=== PATIENT | male | born 1935 | race Caucasian/White ===

== ENCOUNTER 2016-11-12 23:37 | Inpatient (IN) | payer MEDICARE ==
[2016-11-12] MEDS ORDERED: Pharmacy Review for Metformin - IV Contrast Given SCH (23:45)
[2016-11-12] MEDS ORDERED: SODIUM CHLORIDE 0.9% 3 ML FLUSH FLUSH PRN (23:58)
[2016-11-12] MEDS ORDERED: MORPHINE 4 MG/ML INJECTION IV ONE (23:58)
--- NOTE | 2016-11-13 00:20 | EDPRACDOC ---
- General Information Chief Complaint: Abdominal Pain Stated Complaint: ABD PAIN Time Seen by Provider: 11/12/16 23:49 Mode Of Arrival: Car Home Medications: Home Medications Aspirin [Aspirin EC] 81 mg PO DAILY 06/07/14 Losartan/Hydrochlorothiazide [Hyzaar 50-12.5 Tablet] 1 tab PO DAILY 06/07/14 Oxycodone HCl/Acetaminophen [Percocet 5-325 mg Tablet] 1 - 2 tab PO Q4H PRN #20 tab 07/16/16 Sulfamethoxazole/Trimethoprim [Bactrim Ds Tablet] 1 tab PO BID #20 tab 07/16/16 Terbinafine HCl [Lamisil] 250 mg PO DAILY 07/16/16 Fenofibrate [Tricor] 145 mg PO DAILY 07/21/16 Tamsulosin HCl [Flomax] 1 tab PO DAILY 07/21/16 Ciprofloxacin HCl [Cipro] 1 tab PO BID 07/22/16 Hydrocodone/Acetaminophen [Lortab 7.5-325 mg Tablet] 1 tab PO Q6 PRN 07/22/16 Allergies/Adverse Reactions: Allergies Allergy/AdvReac Type Severity Reaction Status Date / Time No Known Allergies Allergy Verified 11/12/16 23:46 - History of Present Illness Onset: YESTERDAY HPI: PT PRESENTS WITH 24 HOURS OF PERIUMBILICAL AND SUPRAPUBIC ABDOMINAL PAIN. HAD A BM TODAY WHICH WAS NORMAL. DENIES N/V OR PAIN WITH URINATION. Pain Location: Reports: Periumbilical, Suprapubic Pain Context: Reports: Spontaneous Pain Severity: Moderate Pain Quality: Reports: Aching Pain Radiation: Reports: No Radiation Associated Signs & Symptoms: Denies: Nausea, Vomiting, Diarrhea, Dysuria Oral Intake: Normal Urinary Output: Normal ED Past Medical History - History Reviewed Yes Nurses notes reviewed and agree except as marked - Patient Medical History Neurological History: Cardiac History: Reports: Hypertension, Hypercholesterolemia Musculoskeletal History: Reports: Arthritis Psychological History: Denies: Depression, Substance Use Disorder Systemic History: Reports: Cancer (basal cell skin). Denies: Hypothyroidism Surgical History: Reports: Hernia Surgery (INGUINAL) - Family Medical History Reports: Hypertension (BROTHER, FATHER), Cancer (BROTHER UNKNOWN CA), Cardiac Disorders (BROTHER, MOTHER). Denies: Diabetes, Stroke - Social Medical History Smoking Status: Former smoker Social History: Denies: Substance Use Disorder Lives With: Spouse Lives In: Home EDM Review of Systems - Review of Systems ROS Negative Except as Marked: Yes All systems reviewed and were negative except as marked Constitutional: negative: Fever Respiratory: negative: Shortness of Breath Cardiovascular: negative: Chest Pain Gastrointestinal: Pain. negative: Diarrhea, Nausea, Vomiting - Physical Exam Constitutional: Alert Oriented to: Time, Person, Place Last recorded Vital Signs: Last Vital Signs Temp 97.8 F 11/12/16 23:41 Pulse 78 11/13/16 01:10 Resp 18 11/13/16 01:10 BP 148/67 11/13/16 01:10 Pulse Ox 96 11/13/16 01:10 Oxygen Pulse Oxygen Saturation 96 O2 Device Room Air Oxygen Flow Rate Fraction of Inspired Oxygen ( FIO2) - HEENT Head: negative: Deformity, Laceration Eye Exam: negative: Conjunctival Injection, Pale Conjunctiva Oropharynx: negative: Membranes Dry Nose: negative: Congestion, Discharge Neck: negative: Limited ROM - Respiratory/Cardiovascular Respiratory: Normal - CTA. negative: Accessory Muscle Use, Diminished, Tachypnea Cardiovascular: negative: Bradycardia, Tachycardia, Irregular - GI Auscultation: Normal Palpation: Normal Tenderness: Moderate, Guarding, Suprapubic, Periumbilical. negative: Rebound, Rigidity - Integumentary Skin: Warm, Dry. negative: Rash - Neurologic Memory Impaired: Normal Motor Function: Normal Mood Description: Appropriate Thought: Coherent Perception: Normal - Results 11/13/16 00:26 11/13/16 00:26 WBC 4.5 xk/uL (3.8-10.8) 11/13/16 00:26 RBC 3.90 xM/uL (4.70-6.10) L 11/13/16 00:26 Hgb 12.2 g/dL (14.0-18.0) L 11/13/16 00:26 Hct 35.8 % (42-52) L 11/13/16 00:26 MCV 92 fL (80-94) 11/13/16 00:26 MCH 31.4 pg (27-32) 11/13/16 00:26 MCHC 34.2 g/dl (33-36) 11/13/16 00:26 RDW 17.0 % (11.5-14.5) H 11/13/16 00:26 Plt Count 170 xk/uL (130-400) 11/13/16 00:26 MPV 10.7 fL (7.4-10.4) H 11/13/16 00:26 Neut % (Auto) 73.4 % (45-76) 11/13/16 00: Lymph % (Auto) 11.2 % (17-44) L 11/13/16: Garrard % (Auto) 14.7 % (3-10) H 11/13/16 00: Eos % (Auto) 0.3 % (0-5) 11/13/16 00: Baso % (Auto) 0.4 % (0-2) 11/13/16 00:26 Absolute Neuts (auto) 3.29 xk/uL (1.7-8.2) 11/13/16 00: Absolute Lymphs (auto) 0.50 xk/uL (0.65-4.75) L 11/13/16 00:26 Sodium 140 mEq/L (137-146) 11/13/16 00: Potassium 4.0 mEq/L (3.5-5.1) 11/13/16 00:26 Chloride 106 mEq/L (98-107) 11/13/16 00: Carbon Dioxide 22 mMOL/L (22-33) 11/13/16 00:26 Anion Gap 16 mEq/L (8-16) 11/13/16 00:26 BUN 26 MG/DL (9-20) H 11/13/16 00:26 Creatinine 0.90 MG/DL (0.66-1.25) 11/13/16 00:26 Estimated GFR (MDRD) > 60 mL/min (>=60) 11/13/16 00:26 Glucose 128 MG/DL (70-99) H 11/13/16 00:26 Calculated Osmolality 276 MOs/Kg (270-290) 11/13/16 00:26 Calcium 9.4 MG/DL (8.4-10.2) 11/13/16 00:26 Total Bilirubin 0.9 MG/DL (0.2-1.3) 11/13/16 00:26 AST 22 IU/L (17-59) 11/13/16 00:26 ALT 40 IU/L (21-72) 11/13/16 00:26 Alkaline Phosphatase 40 IU/L (50-160) L 11/13/16 00:26 Total Protein 6.8 G/DL (6.3-8.2) 11/13/16 00:26 Albumin 4.1 G/DL (3.5-5.0) 11/13/16 00:26 Lab Results 11/13/16 11/13/16 00:26 00:26 WBC 4.5 RBC 3.90 L Hgb 12.2 L Hct 35.8 L MCV 92 MCH 31.4 MCHC 34.2 RDW 17.0 H Plt Count 170 MPV 10.7 H Neut % (Auto) 73.4 Lymph % (Auto) 11.2 L Garrard % (Auto) 14.7 H Eos % (Auto) 0.3 Baso % (Auto) 0.4 Absolute Neuts (auto) 3.29 Absolute Lymphs (auto) 0.50 L Sodium 140 Potassium 4.0 Chloride 106 Carbon Dioxide 22 Anion Gap 16 BUN 26 H Creatinine 0.90 Estimated GFR (MDRD) > 60 Glucose 128 H Calculated Osmolality 276 Calcium 9.4 Total Bilirubin 0.9 AST 22 ALT 40 Alkaline Phosphatase 40 L Total Protein 6.8 Albumin 4.1 - Departure Yes I personally saw and evaluated the patient. Disposition: Admit IP To This Hospital Condition: Stable Final Diagnosis: Small bowel obstruction Referrals: Idania Hanson MD [Primary Care Provider] - One Week Decision to Admit Time: 02:00 (DR. NORMAN TO ADMIT) Decision to admit date: 11/13/16 Decision to admit: from ED
[2016-11-13 00:44] LABS: BLOOD UREA NITROGEN 26 MG/DL (9-20); CALCIUM 9.4 MG/DL (8.4-10.2); CALCULATED OSMOLALITY 276 MOs/Kg (270-290); CHLORIDE 106 mEq/L (98-107); GLUCOSE 128 MG/DL (70-99); SODIUM LEVEL 140 mEq/L (137-146); TOTAL PROTEIN 6.8 G/DL (6.3-8.2)
[2016-11-13 01:18] LABS: AUTOMATED BASOPHIL 0.4 % (0-2); AUTOMATED EOSINOPHIL 0.3 % (0-5); AUTOMATED LYMPH 11.2 % (17-44); AUTOMATED MONOCYTE 14.7 % (3-10); AUTOMATED NEUTROPHIL 73.4 % (45-76); MPV 10.7 fL (7.4-10.4)
--- NOTE | 2016-11-13 01:42 | DIRPT ---
CLINICAL DATA: 81-year-old male with abdominal pain. EXAM: CT ABDOMEN AND PELVIS WITH CONTRAST TECHNIQUE: Multidetector CT imaging of the abdomen and pelvis was performed using the standard protocol following bolus administration of intravenous contrast. CONTRAST: 100 cc Isovue 370 COMPARISON: CT dated 07/16/2016 FINDINGS: The visualized lung bases are clear. No intra-abdominal free air or free fluid. Small gallstone. No pericholecystic fluid. The liver, pancreas appear unremarkable. The splenomegaly measuring up to 23 cm similar to prior study. The adrenal glands, kidneys, visualized ureters appear unremarkable. There is thickened and trabecular appearance of the bladder wall with multiple diverticula measuring up to 6.7 cm along the right posterior wall. Findings most compatible with chronic bladder outlet obstruction. The prostate and seminal vesicles are grossly unremarkable. Multiple mildly dilated fluid-filled loops of small bowel noted in the upper and mid abdomen. There is thickening and inflammatory changes of this bowel loops. There is focal abutment of the small bowel to the umbilical hernia repair mesh compatible with adhesions. There is apparent associated focal bowel narrowing and a degree of obstruction. There is mild dilatation of more distal bowel loops. The terminal ileum demonstrated normal caliber. A second transition zone may be present in the right hemipelvis (series 3, image 71 and coronal image 58) where there is apparent short segment narrowing of the small bowel. Underlying stricture or adhesion is not excluded. There is colonic diverticulosis without active inflammatory changes. Normal appendix. There is aortoiliac atherosclerotic disease. The abdominal aorta and IVC appear patent. No portal venous gas identified. There is no adenopathy. Top-normal periportal and portacaval lymph nodes. Degenerative changes of the spine. No acute fracture. IMPRESSION: Small bowel obstruction with transition zone at the level of the umbilical hernia repair due to adhesions. A second transition zone may be present within the more distal small bowel in the right hemipelvis possibly related to underlying strictures/adhesion. Clinical correlation and follow-up recommended. Colonic diverticulosis. Thickened and trabeculated urinary bladder sequela of chronic bladder outlet obstruction. Electronically Signed By: Danny Celestin M.D. On: 11/13/2016 01:39
[2016-11-13] MEDS ORDERED: ONDANSETRON HCL 4 MG/2 ML VIAL IV PRN (02:12)
[2016-11-13] MEDS ORDERED: ACETAMINOPHEN 650 MG SUPP PR PRN (02:12)
[2016-11-13] MEDS ORDERED: PROMETHAZINE 25 MG/ML VIAL IV PRN (02:13)
[2016-11-13] MEDS ORDERED: MORPHINE 2 MG/ML INJECTION IV PRN ×3 (02:14→02:15)
[2016-11-13] MEDS ORDERED: OXYCODONE HCL 5 MG TABLET PO PRN ×2 (02:16)
[2016-11-13] MEDS: NS 1,000 ML IV SCH ×3 (03:09→16:48)
[2016-11-13] MEDS: CEFOXITIN 1 GM in D5W 100 ML IV SCH ×4 (03:10→19:59)
[2016-11-13] MEDS ORDERED: Vaccine Screening Complete SCH (04:00)
[2016-11-13] MEDS ORDERED: Chloraseptic 6 OZ BOT PO PRN (04:42)
[2016-11-13] MEDS: SODIUM CHLORIDE 0.9% 3 ML FLUSH FLUSH SCH ×2 (05:58→17:27)
[2016-11-13 06:50] LABS: RBC/URINE 0-2 (0-2); WBC/URINE 0-2 (0-2)
[2016-11-13 06:51] LABS: LEUKOCYTES/URINE NEG (NEGATIVE); NITRITE/URINE NEG (NEGATIVE); URINE OCCULT BLOOD NEG (NEG/TRACE)
[2016-11-13] MEDS: MORPHINE 2 MG/ML INJECTION IV PRN ×3 (07:29→19:56)
--- NOTE | 2016-11-13 14:50 | HISTPHYS ---
- Chief Complaint ABdominal Pain - History of Present Illness 81 YO WM with complaint of abdominal pain. This started fairly suddenly and increased in intensity. Denies any alleviating factors. The pain was 8/10 and sharp No previous episodes like this. Had nonbloody BM yesterday. No nausea or vomiting. No fevers. Had workup in ER and was found to have dilated small bowel which may be fundraising sale representative of SBO. - Medical History Cardiac History: Reports: Hypertension Respiratory History: Reports: No Significant History GI/ History: Reports: BPH Musculoskeletal History: Reports: Arthritis Systemic History: Reports: Cancer (skin) Neurological History: Psychological History: Denies: Depression - Surgical History Reports: Hernia Surgery (INGUINAL), Other (TURP) - Medictions/Allergies Allergies No Known Allergies Allergy (Verified 11/12/16 23:46) Home Medications Aspirin [Aspirin EC] 81 mg PO DAILY 06/07/14 Losartan/Hydrochlorothiazide [Hyzaar 50-12.5 Tablet] 1 tab PO DAILY 06/07/14 Fenofibrate [Tricor] 145 mg PO DAILY 07/21/16 Bethanechol [Urecholine] 25 mg PO TID 11/13/16 - Family History Reports: Hypertension (BROTHER, FATHER), Cancer (BROTHER UNKNOWN CA), Cardiac Disorders (BROTHER, MOTHER) - Social History Smoking Status: Former smoker Social History: Denies: Amphetamine Use, Alcohol Use, Barbiturate Use, Benzodiazipine Use, Cocaine Use, Heroin Use, Marijuana Use, Methadone Use, MDMA (Ecstasy) Use, Substance Use Disorder - Review of Systems Constitutional: negative: Chills, Fever, Fatigue, Loss of Appetite, Weakness, Weight gain, Weight loss Eyes: negative: Blurred Vision, Double Vision, Photophobia Ears: negative: Hearing Loss, Tinnitus Nose: negative: Deformity, Ecchymosis Mouth: negative: Pain, Drooling Throat/Neck: negative: Swelling, Masses, Hoarseness Respiratory: negative: Cough, Shortness of Breath Cardiovascular: negative: Chest Pain, Orthopnea, Palpitations Gastrointestinal: Abdominal Pain. negative: Nausea, Vomiting, Melena, Hematochezia Genitourinary: Benign prostatic hyperplasia (BPH). negative: Dysuria, Hematuria Neurological: negative: Headache, Seizure Integumentary: negative: Bruising, Itching, Rash, Wound Allergic/Immunologic: negative: Hives, Itching Hematologic: negative: Easy Bruising, Easy Bleeding Endocrine: negative: Weight Gain, Weight Loss, Excessive Thirst, Excessive Hunger Psychiatric: negative: Anxiety, Depression - Physical Exam Vital Signs: Initial Vitals Temperature 97.8 F 11/12/16 23:41 Pulse Rate 83 11/12/16 23:41 Respiratory Rate 20 11/12/16 23:41 Blood Pressure 156/76 11/12/16 23:41 Pulse Oxygen Saturation 97 11/12/16 23:41 Constitutional: No apparent distress, Alert. negative: Cachectic, Distress Oriented to: Time, Person, Place - HEENT Head: Normal. negative: Laceration, Swelling Eye: negative: Pale Conjunctiva, Scleral Icterus Nose: negative: Discharge, Deformity Respiratory: Normal - CTA. negative: Rales, Rhonchi, Wheezes Cardiovascular: Normal. negative: Irregular, Diastolic murmur, Systolic murmur - GI Auscultation: Normal Palpation: Normal. negative: Enlarged liver, Fluid Wave Tenderness: Mild. negative: Guarding, Rebound Elliott's Sign: Negative - Musculoskeletal Back: Normal. negative: Ecchymosis, CVA Tenderness Extremities: negative: Clubbing, Cyanosis, Edema - Integumentary Skin: Warm, Dry Lymphatics: negative: Adenopathy - Assessment/Plan (1) Abdominal pain R10.9 - UNSPECIFIED ABDOMINAL PAIN Acute Present on Admission: Yes A (2) Cholelithiasis K80.20 - CALCULUS OF GALLBLADDER W/O CHOLECYSTITIS W/O OBSTRUCTION Chronic Present on Admission: Yes C C C C C B (3) BPH (benign prostatic hypertrophy) N40.0 - BENIGN PROSTATIC HYPERPLASIA WITHOUT LOWER URINRY TRACT SYMP Chronic Present on Admission: Yes P L Plan: Will admit and start IVF and bowel rest. NGT to suction. Recheck XR in AM Would like to see if this resolves with conservative therapy. If fails to iprove quickly will check SBFT and depending on results may need to have surgical intervention.
[2016-11-13] MEDS: BETHANECHOL 25 MG TAB PO SCH ×2 (16:47→19:59)
[2016-11-13] MEDS: LOSARTAN KCL/HCTZ 50-12.5 TAB PO SCH (16:47)
[2016-11-14] MEDS: ACETAMINOPHEN 325 MG/TAB TABLET PO PRN ×3 (01:42→18:10)
[2016-11-14] MEDS: CEFOXITIN 1 GM in D5W 100 ML IV SCH ×4 (03:20→20:15)
[2016-11-14] MEDS: NS 1,000 ML IV SCH ×4 (03:21→20:14)
[2016-11-14 05:14] VITALS: BMI 26.7
[2016-11-14] MEDS: SODIUM CHLORIDE 0.9% 3 ML FLUSH FLUSH SCH ×2 (05:29→18:05)
[2016-11-14] MEDS: BETHANECHOL 25 MG TAB PO SCH ×3 (05:30→20:15)
[2016-11-14] MEDS: LOSARTAN KCL/HCTZ 50-12.5 TAB PO SCH (08:44)
--- NOTE | 2016-11-14 12:18 | DIRPT ---
CLINICAL DATA: Small bowel obstruction EXAM: ABDOMEN - 2 VIEW COMPARISON: 11/13/2016 FINDINGS: Mild gaseous distended small bowel loops in left mid abdomen suspicious for ileus or partial bowel obstruction. There is contrast material from yesterday CT scan within bladder. Pelvic phleboliths are noted. 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 No free abdominal air. IMPRESSION: Mild gaseous distended small bowel loops in left abdomen suspicious for ileus or partial obstruction. Contrast material noted within urinary bladder and a urinary bladder diverticulum. Electronically Signed By: Rodger Pearce M.D. On: 11/14/2016 12:15
--- NOTE | 2016-11-14 15:33 | PCM.SURGRO ---
- Subjective Patient: Reports: Feels better, Flatus, No Bowel Movement - Objective / Physical Exam Vital Signs: Temperature: 97.8 F (11/14/16 13:49) HR: 70 (11/14/16 13:49)RR: 18 (11/14/16 13: 49) BP: 143/53 (11/14/16 13:49)Pulse Ox: 97 (11/14/16 13:49) General: Alert, Oriented x3, Cooperative HEENT: Normal, EOMI, Anicteric Sclera Respiratory: Normal - CTA. negative: Rales, Rhonchi, Wheezes Cardiovascular: Regular rate and rhythm, No Gallops,Rubs/Murmurs Gastrointestinal: Soft. negative: Distended, Tender, Guarding Back: negative: Ecchymosis, CVA Tenderness Extremities: negative: Tenderness, Edema, Clubbing, Cyanosis Psych/Mental Status: Normal Affect, Cooperative. negative: Agitated, Anxious Neurological: Normal speech. negative: Drowsy, Somnolent Skin: Warm,Dry and Intact, No rashes, No breakdown - Assessment and Plan (1) Abdominal pain Acute R10.9 - UNSPECIFIED ABDOMINAL PAIN Present on Admission: Yes A (2) Cholelithiasis Chronic K80.20 - CALCULUS OF GALLBLADDER W/O CHOLECYSTITIS W/O OBSTRUCTION Present on Admission: Yes C C C C C B (3) Small bowel obstruction Acute K56.69 - OTHER INTESTINAL OBSTRUCTION Present on Admission: Yes Plan: Xr today seems to be improved. Will recheck XR in AM. Will start clamping NGT. May need SBFT.
[2016-11-15] MEDS: CEFOXITIN 1 GM in D5W 100 ML IV SCH ×4 (02:20→20:34)
[2016-11-15] MEDS: NS 1,000 ML IV SCH ×4 (02:29→22:50)
[2016-11-15] MEDS: ACETAMINOPHEN 325 MG/TAB TABLET PO PRN ×2 (03:44→11:42)
[2016-11-15] MEDS: SODIUM CHLORIDE 0.9% 3 ML FLUSH FLUSH SCH ×2 (04:34→08:55)
[2016-11-15] MEDS: BETHANECHOL 25 MG TAB PO SCH ×3 (06:25→20:34)
[2016-11-15] MEDS: LOSARTAN KCL/HCTZ 50-12.5 TAB PO SCH (08:37)
--- NOTE | 2016-11-15 13:40 | PCM.SURGRO ---
- Subjective Patient: Reports: No new complaints, Feels better, Flatus, Bowel Movement. Denies: Nausea, Vomiting - Objective / Physical Exam Vital Signs: Temperature: 98.0 F (11/15/16 06:00) HR: 85 (11/15/16 06:00)RR: 18 (11/15/16 06: 00) BP: 132/56 (11/15/16 06:00)Pulse Ox: 97 (11/14/16 13:49) General: Alert, Oriented x3, Cooperative HEENT: Normal, EOMI, Anicteric Sclera Respiratory: Normal - CTA. negative: Rales, Rhonchi Cardiovascular: Regular rate and rhythm, No Gallops,Rubs/Murmurs Gastrointestinal: Soft. negative: Distended, Tender, Guarding, Firm Extremities: negative: Swelling, Edema, Clubbing, Cyanosis Psych/Mental Status: Appropriate, Normal Affect, Cooperative Skin: Warm,Dry and Intact, No rashes, No breakdown - Assessment and Plan (1) Abdominal pain Resolved R10.9 - UNSPECIFIED ABDOMINAL PAIN Present on Admission: Yes A (2) Cholelithiasis Chronic K80.20 - CALCULUS OF GALLBLADDER W/O CHOLECYSTITIS W/O OBSTRUCTION Present on Admission: Yes C C C C C B (3) BPH (benign prostatic hypertrophy) Chronic N40.0 - BENIGN PROSTATIC HYPERPLASIA WITHOUT LOWER URINRY TRACT SYMP Present on Admission: Yes P L Plan: Will D/C NGT and try liquids. If well tolerated, will advance diet.
[2016-11-16] MEDS: CEFOXITIN 1 GM in D5W 100 ML IV SCH ×2 (02:51→07:55)
[2016-11-16] MEDS: NS 1,000 ML IV SCH (02:58)
[2016-11-16] MEDS: SODIUM CHLORIDE 0.9% 3 ML FLUSH FLUSH SCH (04:33)
[2016-11-16] MEDS: BETHANECHOL 25 MG TAB PO SCH (04:34)
[2016-11-16] MEDS: LOSARTAN KCL/HCTZ 50-12.5 TAB PO SCH (07:55)
[2016-11-16] MEDS: ACETAMINOPHEN 325 MG/TAB TABLET PO PRN (09:41)
[2016-11-16 10:30] VITALS: BP 123/64; PULSE 69; TEMP 97.6
--- NOTE | 2016-11-16 11:00 | PCM.DCS92 ---
- Final/Secondary Discharge Diagnosis (1) Abdominal pain Resolved R10.9 - UNSPECIFIED ABDOMINAL PAIN Present on Admission: Yes A (2) Cholelithiasis Chronic K80.20 - CALCULUS OF GALLBLADDER W/O CHOLECYSTITIS W/O OBSTRUCTION Present on Admission: Yes C C C C C B (3) BPH (benign prostatic hypertrophy) Chronic N40.0 - BENIGN PROSTATIC HYPERPLASIA WITHOUT LOWER URINRY TRACT SYMP Present on Admission: Yes P L Discharge Disposition: Home Discharge Condition: Stable Cognitive Discharge Status: Unimpaired Fuctional Discharge Status: Independent Physician Follow up/Referrals: Idania Hanson MD [Primary Care Provider] - Two Weeks Home Medications/ New Prescriptions: No Action Losartan/Hydrochlorothiazide [Hyzaar 50-12.5 Tablet] 1 tab PO DAILY Aspirin [Aspirin EC] 81 mg PO DAILY Fenofibrate [Tricor] 145 mg PO DAILY Bethanechol [Urecholine] 25 mg PO TID Diet at Discharge: Low Residue (teach prior to discharge) Activity: As Tolerated - DC Summary Notes Hospital Course Note:: Discharge summary on patient named YOVANY PINEDA admitted to [facility] on 11/13/16 by Trace Branham MD. Date of discharge is 11/16/16. Patient came with PSBO. This resolved over a few days of conservative therapy. Tolerating PO's . Will have him go home on low residue diet. HE should follow this for one week and then change to regular diet. He knows to call us if there are any issues or problems. - Physical Exam Vital Signs: Initial Vitals Temperature 97.8 F 11/12/16 23:41 Pulse Rate 83 11/12/16 23:41 Respiratory Rate 20 11/12/16 23:41 Blood Pressure 156/76 11/12/16 23:41 Pulse Oxygen Saturation 97 11/12/16 23:41 Constitutional: No apparent distress, Alert Oriented to: Time, Person - HEENT Head: Normal Respiratory: Normal - CTA Cardiovascular: Normal - GI Auscultation: Normal Palpation: Normal. negative: Tense Tenderness: Non tender. negative: Guarding, Rebound, Rigidity - Musculoskeletal Back: Normal. negative: Ecchymosis, CVA Tenderness Extremities: negative: Calf Tenderness, Clubbing, Cyanosis - Integumentary Skin: Normal
== END 2016-11-16 13:03 | disposition home or self-care (01) | DRG 390 ==
LOC: ED 23:37 → MPS3 11-13 02:00
PROVIDERS: ADMIT Surgery; ATTEND Surgery
DX: K56.69 Other intestinal obstruction (principal); I10 Essential (primary) hypertension; K80.20 Calculus of gallbladder without cholecystitis without obstruction; N40.0 Benign prostatic hyperplasia without lower urinary tract symptoms; M19.90 Unspecified osteoarthritis, unspecified site; Z85.828 Personal history of other malignant neoplasm of skin; Z79.82 Long term (current) use of aspirin; Z79.899 Other long term (current) drug therapy; Z87.891 Personal history of nicotine dependence
CPT/HCPCS: 36415; 74020; 74177; 80053; 81001; 85025; 96374; 99284; A9698; J0694; J2270; J3490; J7060